=== PATIENT | male | born 1970 | race Caucasian/White ===

== ENCOUNTER 2022-07-17 16:50 | Emergency (ER) | payer MEDICAID ==
[~2022-07-17] VITALS: Ht 175.3 cm; Wt 77.1 kg
--- NOTE | 2022-07-17 18:30 | NUR ---
Patient is in the ER hallway, pending available ER room and nurse. Patient consents to IV line insertion. Spouse is with the patient.
--- NOTE | 2022-07-17 18:57 | NUR ---
Nursing SBAR given to dry charge process attendant Adrian.
[2022-07-17] MEDS ORDERED: MORPHINE SULFATE 4 MG/1 ML DISP.SYRIN IV ONE (19:00)
[2022-07-17] MEDS ORDERED: ONDANSETRON 4 MG/2 ML VIAL IV ONE (19:00)
[2022-07-17] MEDS ORDERED: ONDANSETRON 4 MG/2 ML VIAL ONE (19:00)
[2022-07-17] MEDS ORDERED: IV NORMAL SALINE 1000 ML BAG IV ONE (19:00)
[2022-07-17] MEDS ORDERED: MORPHINE SULFATE 4 MG/1 ML DISP.SYRIN ONE (19:01)
--- NOTE | 2022-07-17 19:02 | NUR ---
Dr [email or web address], medical screening exam in progress
[2022-07-17 19:19] LABS: HEMATOCRIT 36.5 % (36.7-47.1); MEAN CORPUSCULAR VOLUME 95.7 fL (73.0-96.2); PLATELET COUNT (AUTO) 241 K/uL (152-348)
[2022-07-17 19:28] LABS: CARBON DIOXIDE 28 mmol/L (21-32); CHLORIDE 105 mmol/L (98-107); CREATININE 1.2 mg/dL (0.6-1.3); GLUCOSE 97 mg/dL (74-106); POTASSIUM 4.4 mmol/L (3.5-5.1); UREA NITROGEN, BLOOD 15 mg/dL (7-18)
[2022-07-17 19:33] LABS: ALANINE AMINOTRANSFERASE 51 U/L (16-63); ALKALINE PHOSPHATASE 56 U/L (50-136); ASPARTATE AMINOTRANSFERASE 33 U/L (15-37); BILIRUBIN,DIRECT < 0.1 mg/dL (0.0-0.2); BILIRUBIN,TOTAL 0.3 mg/dL (0.2-1.0); LIPASE 142 U/L (73-393); TOTAL PROTEIN, SERUM 6.9 g/dL (6.4-8.2)
--- NOTE | 2022-07-17 19:41 | NUR ---
IV removed. Catheter intact and site benign. Pressure and 4x4 gauze applied to site. No bleeding noted.
--- NOTE | 2022-07-17 19:51 | NUR ---
Patient does not wish to proceed with medical care recommended by (Mikey ). Patient given information related to possible complications, up to and including , which could occur as a result of leaving the hospital at this time. Patient verbalizes understanding of risks involved due to leaving against medical advice. Patient has signed AMA form.
== END 2022-07-17 19:52 | disposition left against medical advice (07) ==
LOC: ER 16:54
DX: R10.9 Unspecified abdominal pain (principal); Z53.29 Procedure and treatment not carried out because of patient's decision for other reasons; Z90.49 Acquired absence of other specified parts of digestive tract; Z87.442 Personal history of urinary calculi
CPT/HCPCS: 99284; 96374; 96375; 80076; 80048; 83690; 85025; J2405; J2270; J7040; A4663